=== PATIENT | female | born 2000 | race Caucasian/White ===

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

== ENCOUNTER 2018-07-09 19:03 | Emergency (ER) | payer MEDICAID ==
[~2018-07-09] VITALS: Ht 162.6 cm; Wt 87.1 kg
[2018-07-09 19:09] VITALS: BP 122/69
--- NOTE | 2018-07-09 19:10 | NUR ---
PT TRIAGED AND SENT TO ER LOBBY
--- NOTE | 2018-07-09 21:42 | NUR ---
PT TAKEN TO [facility] FOR ER LOBBY
[2018-07-09 21:53] LABS: BASOPHILS % (AUTO) 0.3 % (0.0-2.0); EOSINOPHILS # (AUTO) 0.1 K/uL (0-0.4); EOSINOPHILS % (AUTO) 1.3 % (0.0-4.0); HEMATOCRIT 41.6 % (36-48); HEMOGLOBIN 13.6 g/dL (12.0-16.0); LYMPHOCYTES # (AUTO) 2.5 K/uL (2.5-16.5); LYMPHOCYTES % (AUTO) 30.5 % (20.5-51.1); MEAN CORPUSCULAR HEMOGLOBIN 29 pg (27-31); MEAN CORPUSCULAR HGB CONC 33 g/dL (33-37); MEAN CORPUSCULAR VOLUME 89.8 fL (80-94); MONOCYTES # (AUTO) 0.7 K/uL (0.8-1.0); MONOCYTES % (AUTO) 8.8 % (1.7-9.3); NEUTROPHILS # (AUTO) 4.9 K/uL (1.8-7.7); NEUTROPHILS % (AUTO) 59.1 % (42.2-75.2); PLATELET COUNT (AUTO) 311 K/uL (140-450); RED BLOOD CELL COUNT(AUTO) 4.64 MIL/uL (4.20-5.40); RED CELL DISTRIBUTION WIDTH 12.8 % (11.6-13.7); WHITE BLOOD COUNT (AUTO) 8.4 K/uL (4.5-11.0)
[2018-07-09 22:39] LABS: BILIRUBIN,URINE NEGATIVE (NEGATIVE); BLOOD, URINE TRACE-L (NEGATIVE); COLOR,URINE YELLOW (YELLOW); LEUKOCYTE ESTERASE ,URINE TRACE (NEGATIVE); NITRITE, URINE NEGATIVE (NEGATIVE); UGLUCOSE NEGATIVE (NEGATIVE)
[2018-07-09 22:47] LABS: APPEARANCE,URINE SLIGHTLY HAZY (CLEAR)
[2018-07-09 22:49] LABS: CALCIUM OXALATE CRYSTALS,UR 0-3 /HPF (None Seen); RBC,URINE 0-5 (RARE) /HPF (0-5)
--- NOTE | 2018-07-09 22:56 | NUR ---
PT TAKEN TO BED 12
[2018-07-09 23:25] VITALS: BP 124/61
--- NOTE | 2018-07-09 23:25 | NUR ---
Patient discharged with v/s stable. Written and verbal after care instructions given and explained. Patient verbalized understanding. Ambulatory with steady gait. All questions addressed prior to discharge. Advised to follow up with PMD.
== END 2018-07-09 23:25 | disposition home or self-care (01) ==
LOC: MED 19:03
DX: O20.0 Threatened abortion (principal); Z3A.11 11 weeks gestation of pregnancy
CPT/HCPCS: 36415; 76817; 81001; 84702; 85025; 86900; 86901; 87086; 99284; Q0092

== ENCOUNTER 2018-08-12 22:34 | Emergency (ER) | payer MEDICAID ==
[~2018-08-12] VITALS: Ht 162.6 cm; Wt 93.0 kg
[2018-08-12 22:44] VITALS: BP 120/72
--- NOTE | 2018-08-12 22:48 | NUR ---
PT AMBULATED TO BED 2 WITH VSS.
--- NOTE | 2018-08-12 22:50 | NUR ---
PATIENT PRESENTS TO ED WITH C/O HEADACHE, LOWER ABD PAIN AND BACK PAIN. PT STATES 17 WEEKS . NO VAG. BLEEDING OR DISCHARGE. PAIN 9/10. SKIN IS PINK/WARM/DRY; AAOX4 WITH EVEN AND STEADY GAIT; LUNGS CLEAR BL; HR EVEN AND REGULAR; PATIENT POSITIONED FOR COMFORT; HOB ELEVATED; BEDRAILS UP X2; BED DOWN. ER MD MADE AWARE OF PT STATUS.
[2018-08-12 23:28] LABS: APPEARANCE,URINE HAZY (CLEAR); BILIRUBIN,URINE NEGATIVE (NEGATIVE); BLOOD, URINE TRACE-I (NEGATIVE); COLOR,URINE YELLOW (YELLOW); LEUKOCYTE ESTERASE ,URINE 2+ (NEGATIVE); NITRITE, URINE NEGATIVE (NEGATIVE); UGLUCOSE NEGATIVE (NEGATIVE)
[2018-08-12 23:36] LABS: RBC,URINE 0-5 (RARE) /HPF (0-5)
[2018-08-12 23:37] LABS: CALCIUM OXALATE CRYSTALS,UR 0-10 /HPF (None Seen)
[2018-08-12] MEDS ORDERED: ACETAMINOPHEN EXTRA STRENGTH 500 MG TAB PO ONE (23:55)
[2018-08-13] VITALS: BP 118/68
--- NOTE | 2018-08-13 | NUR ---
Patient discharged with v/s stable. Written and verbal after care instructions given and explained. Patient alert, oriented and verbalized understanding of instructions. Ambulatory with steady gait. All questions addressed prior to discharge. ID band removed. Patient advised to follow up with PMD. Rx of Macrobid and Tylenol given. Patient educated on indication of medication including possible reaction and side effects. Opportunity to ask questions provided and answered.
== END 2018-08-13 | disposition home or self-care (01) ==
LOC: MED 22:34
DX: O23.42 Unspecified infection of urinary tract in pregnancy, second trimester (principal); O26.892 Other specified pregnancy related conditions, second trimester; R51 Headache; Z3A.17 17 weeks gestation of pregnancy
CPT/HCPCS: 81001; 81025; 87086; 99283

== ENCOUNTER 2018-12-11 19:40 | Inpatient (IN) | payer MEDICAID ==
[~2018-12-11] VITALS: Ht 162.6 cm; Wt 86.2 kg
[2018-12-11 19:45] VITALS: BP 150/73
--- NOTE | 2018-12-11 19:48 | NUR ---
to labor and delivery, LIBORIO NOTED , RN FROM [facility] CALLED
[2018-12-11] MEDS ORDERED: TERBUTALINE 1 MG/ML VIAL SUBQ SCH (20:25)
[2018-12-11] MEDS ORDERED: TERBUTALINE 1 MG/ML VIAL SUBQ ONE (20:38)
[2018-12-11 20:51] VITALS: BP 121/71
[2018-12-11 21:25] LABS: APPEARANCE,URINE CLEAR (CLEAR); BILIRUBIN,URINE NEGATIVE (NEGATIVE); BLOOD, URINE NEGATIVE (NEGATIVE); COLOR,URINE YELLOW (YELLOW); LEUKOCYTE ESTERASE ,URINE NEGATIVE (NEGATIVE); NITRITE, URINE NEGATIVE (NEGATIVE); UGLUCOSE NEGATIVE (NEGATIVE)
[2018-12-11 21:26] LABS: BASOPHILS % (AUTO) 0.3 % (0.0-2.0); EOSINOPHILS % (AUTO) 0.2 % (0.0-4.0); HEMATOCRIT 35.9 % (36-48); HEMOGLOBIN 12.2 g/dL (12.0-16.0); LYMPHOCYTES # (AUTO) 2.6 K/uL (2.5-16.5); LYMPHOCYTES % (AUTO) 27.8 % (20.5-51.1); MEAN CORPUSCULAR HEMOGLOBIN 30 pg (27-31); MEAN CORPUSCULAR HGB CONC 34 g/dL (33-37); MEAN CORPUSCULAR VOLUME 88.2 fL (80-94); MONOCYTES # (AUTO) 0.5 K/uL (0.8-1.0); MONOCYTES % (AUTO) 5.3 % (1.7-9.3); NEUTROPHILS # (AUTO) 6.3 K/uL (1.8-7.7); NEUTROPHILS % (AUTO) 66.4 % (42.2-75.2); PLATELET COUNT (AUTO) 287 K/uL (140-450); RED BLOOD CELL COUNT(AUTO) 4.07 MIL/uL (4.20-5.40); RED CELL DISTRIBUTION WIDTH 12.5 % (11.6-13.7); WHITE BLOOD COUNT (AUTO) 9.5 K/uL (4.5-11.0)
[2018-12-11 21:40] LABS: FIBRINOGEN 500 mg/dL (200-400)
[2018-12-11 21:52] LABS: D-DIMER 592 ng/ml (0-400)
[2018-12-11] MEDS ORDERED: BETAMETH ACET/BETAMETH NA PH 30 MG/5 ML VIAL IM ONE ×2 (22:45→23:02)
[2018-12-12] MEDS: TERBUTALINE 2.5 MG TAB PO SCH ×6 (00:01→20:02)
[2018-12-12] MEDS ORDERED: TERBUTALINE 2.5 MG TAB ONE ×6 (00:07→20:11)
--- NOTE | 2018-12-12 09:03 | NUR ---
PATIENT HAS BEEN SCREENED AND CATEGORIZED LOW NUTRITION RISK. PATIENT WILL BE SEEN WITHIN 7 DAYS OF ADMISSION. 12/18/[address]
[2018-12-12] MEDS ORDERED: BETAMETH ACET/BETAMETH NA PH 30 MG/5 ML VIAL IM ONE (11:35)
== END 2018-12-12 20:15 | disposition home or self-care (01) | DRG 563 ==
LOC: MED 19:40 → OBSVTOIN 19:58 → MLD 19:58
PROVIDERS: ADMIT Obstetrics & Gynecology; ATTEND Obstetrics & Gynecology
DX: O60.03 Preterm labor without delivery, third trimester (principal); Z3A.34 34 weeks gestation of pregnancy
CPT/HCPCS: 36415; 76805; 81003; 85025; 85379; 85384; 86886; 86900; 86901; 99281; C1758; J0702; J3105; Q0092

== ENCOUNTER 2019-02-20 17:01 | Emergency (ER) | payer MEDICAID ==
[~2019-02-20] VITALS: Ht 162.6 cm; Wt 90.9 kg
[2019-02-20 17:11] VITALS: BP 123/67
--- NOTE | 2019-02-20 17:37 | NUR ---
PT AMBULATED TO ER BED 09
[2019-02-20] MEDS ORDERED: NACL 0.9% 1,000 ML IV ONE (17:45)
[2019-02-20 18:10] LABS: BASOPHILS % (AUTO) 0.6 % (0.0-2.0); EOSINOPHILS # (AUTO) 0.1 K/uL (0-0.4); EOSINOPHILS % (AUTO) 1.9 % (0.0-4.0); HEMATOCRIT 30.6 % (36-48); HEMOGLOBIN 9.8 g/dL (12.0-16.0); LYMPHOCYTES # (AUTO) 2.4 K/uL (2.5-16.5); LYMPHOCYTES % (AUTO) 31.1 % (20.5-51.1); MEAN CORPUSCULAR HEMOGLOBIN 26 pg (27-31); MEAN CORPUSCULAR HGB CONC 32 g/dL (33-37); MEAN CORPUSCULAR VOLUME 80.9 fL (80-94); MONOCYTES # (AUTO) 0.6 K/uL (0.8-1.0); MONOCYTES % (AUTO) 8.1 % (1.7-9.3); NEUTROPHILS # (AUTO) 4.5 K/uL (1.8-7.7); NEUTROPHILS % (AUTO) 58.3 % (42.2-75.2); PLATELET COUNT (AUTO) 417 K/uL (140-450); RED BLOOD CELL COUNT(AUTO) 3.78 MIL/uL (4.20-5.40); RED CELL DISTRIBUTION WIDTH 15.1 % (11.6-13.7); WHITE BLOOD COUNT (AUTO) 7.7 K/uL (4.5-11.0)
--- NOTE | 2019-02-20 18:12 | NUR ---
18 Y/O FEMALE C/O VAGINAL BLEEDING X2 DAYS, HAD VAGINAL DELIVERY 5 WEEKS AGO AT [facility], PT STATES SHE HAD HEMORRHAGE AFTER DELIVERY. FEELING WEAK. PT REPORTS GOING THROUGH 6-8 [facility] PADS PER DAY. PT REPORTS LARGE CLOTS. MEDHX:DENEIS RX:DENIES
--- NOTE | 2019-02-20 18:18 | NUR ---
Ultrasound at bedside.
--- NOTE | 2019-02-20 19:14 | NUR ---
PT AMBULATED TO RESTROOM WITH STEADY GAIT TO PROVIDE UA.
--- NOTE | 2019-02-20 19:26 | NUR ---
Pt report given to EMILIA BRINK. Transfer of care at this time.
[2019-02-20 21:10] LABS: APPEARANCE,URINE SL CLOUDY (CLEAR); BILIRUBIN,URINE 1+ (NEGATIVE); BLOOD, URINE 3+ (NEGATIVE); COLOR,URINE RED (YELLOW); LEUKOCYTE ESTERASE ,URINE NEGATIVE (NEGATIVE); NITRITE, URINE NEGATIVE (NEGATIVE); PH,URINE 6.5 (5.0-9.0); UGLUCOSE NEGATIVE (NEGATIVE)
[2019-02-20 21:20] LABS: RBC,URINE TOO NUMEROUS TO COUN /HPF (0-5); WBC,URINE 0-5 /HPF (0-5)
[2019-02-20 21:24] VITALS: BP 116/71
== END 2019-02-20 21:24 | disposition home or self-care (01) ==
LOC: MED 17:01
DX: N93.9 Abnormal uterine and vaginal bleeding, unspecified (principal); Z86.2 Personal history of diseases of the blood and blood-forming organs and certain disorders involving the immune mechanism
CPT/HCPCS: 36415; 76856; 81001; 85025; 86886; 86900; 86901; 93976; 96360; 99284; J7030; Q0092